=== PATIENT | male | born 2000 | race Hispanic/Latino ===

== ENCOUNTER 2024-05-29 19:29 | Outpatient (REF) | payer SELFPAY ==
[2024-05-29 19:32] VITALS: BP 168/99; PULSE 122; RESP 18; TEMP 36.7; O2SAT 98; BMI 30.9
[2024-05-29 19:36] VITALS: BP 139/86; PULSE 122; RESP 18; TEMP 36.7; O2SAT 98
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
--- NOTE | 2024-05-29 19:53 | EKG12_ITS ---
Test Reason : DYSRHYTHMIA Blood Pressure : / mmHG Vent. Rate : 104 BPM Atrial Rate : 104 BPM P-R Int : 174 ms QRS Dur : 080 ms QT Int : 314 ms P-R-T Axes : 021 045 028 degrees QTc Int : 412 ms Sinus tachycardia Otherwise normal ECG Confirmed by Kimo Landaverde ([id number]), newspaper or periodical editor ZEFERINO ROBERTS ([id number]) on 06/01/2024 2:10:27 PM Referred By: Confirmed By:Kimo Landaverde
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
[2024-05-29] MEDS: 0.9% Normal Saline (1000mL) 1,000 ML 999 ML IV (20:04)
[2024-05-29 20:07] LABS: Absolute Lymphocyte Count 2.24 X10^3/uL (0.83-4.51); Absolute Neutrophil Count 5.2 X10^3/uL (2.0-7.7); Basophil# 0.07 X10^3/uL; Basophil% 0.8 % (0-1); Eosinophil# 0.15 X10^3/uL; Eosinophils% 1.8 % (0-5); Hematocrit 43.9 % (40-54); Hemoglobin 15.1 g/dL (13.0-16.5); Lymphocyte # 2.24 X10^3/ul (0.83-4.51); Lymphocyte % 26.8 % (19-41); Mean Corp Hgb Conc 34.4 g/dL (32-36); Mean Corpuscular Hgb 30.6 pg (27.0-32.0); Mean Platelet Vol. 10.4 fl (6.2-12.0); Monocyte# 0.59 X10^3/uL; NRBC Flagged by Analyzer 0 % (0-5); Neutrophil # 5.21 X10^3/uL (2.7-7.7); Neutrophil % 62.3 % (47-70); Platelet Count 228 K/mm3 (150-450); RBC Distribution Width CV 11.9 % (11.6-14.6); RBC Distribution Width SD 38.5 fl (35.1-43.9); Red Blood Count 4.93 M/mm3 (4.6-6.2); White Blood Count 8.4 K/mm3 (4.4-11.0)
[2024-05-29] MEDS: Diphth,Pertuss(Acell),Tet Vac 0.5 ML Vial IM (20:11)
[2024-05-29 20:28] LABS: AST(SGOT) 22 U/L (15-37); Alanine Aminotransfer ALT/SGPT 34 U/L (16-61); Alkaline Phosphatase 103 U/L (45-117); Anion Gap 12 (5-15); BUN 17 mg/dL (7-18); BUN/Creat Ratio 14.9 RATIO (10-20); Bilirubin, Direct 0.12 mg/dL (0.00-0.30); Chloride 109 mmol/L (98-107); Creatinine, Serum 1.14 mg/dL (0.70-1.30); EST Glomerular Filtration Rate 84 mL/min (>60); Est Glom Filt Rate - Afr Amer 101 mL/min (>60); Globulin 3.9 g/dL (2.2-4.2); Glucose 98 mg/dL (74-106); Lipase 21 U/L (13-75); Potassium 3.5 mmol/L (3.5-5.1); Protein, Total 7.9 g/dL (6.4-8.2); Sodium Level 140 mmol/L (136-145)
--- NOTE | 2024-05-29 20:40 | RAD_ITS ---
EXAM: XR LEFT KNEE, 3 VIEWS CLINICAL INDICATION: pain TECHNIQUE: Three views of the left knee. COMPARISON: No relevant prior studies available. FINDINGS: BONES/JOINTS: Unremarkable. No acute fracture. No subluxation. Normal alignment. Preservation of the joint space. No sclerotic or destructive changes observed. SOFT TISSUES: Unremarkable. No soft tissue swelling or gas. No radiopaque foreign body. RAD/Knee 3 Views IMPRESSION: Negative left knee x-rays. Electronically Signed: Jamie Pleitez MD at 21:34 EDT ,
--- NOTE | 2024-05-29 20:40 | RAD_ITS ---
EXAM: XR LEFT TIBIA AND FIBULA, 2 VIEWS CLINICAL INDICATION: pain TECHNIQUE: Frontal and lateral views of the left tibia and fibula. COMPARISON: No relevant prior studies available. FINDINGS: BONES/JOINTS: Unremarkable. No acute fracture. No subluxation. Normal alignment. Preservation of the joint space. No sclerotic or destructive changes observed. SOFT TISSUES: Unremarkable. No soft tissue swelling or gas. No radiopaque foreign body. RAD/Tibia & Fibula 2 Views IMPRESSION: Negative left tibia and fibula x-rays. Electronically Signed: Jamie Pleitez MD at 21:48 EDT ,
--- NOTE | 2024-05-29 20:40 | RAD_ITS ---
EXAM: XR LEFT FEMUR, 2 VIEWS CLINICAL INDICATION: pain TECHNIQUE: Frontal and lateral views of the left femur. COMPARISON: No relevant prior studies available. FINDINGS: BONES/JOINTS: Unremarkable. No acute fracture. No subluxation. Normal alignment. Preservation of the joint space. No sclerotic or destructive changes observed. SOFT TISSUES: Unremarkable. No soft tissue swelling or gas. No radiopaque foreign body. RAD/Femur Min 2 Views IMPRESSION: Negative left femur x-rays. Electronically Signed: Jamie Pleitez MD at 21:36 EDT ,
[2024-05-29 21:03] VITALS: BP 126/72; PULSE 85; RESP 16; O2SAT 98
[2024-05-29 21:16] LABS: Bacteria 0 SEEN /hpf (None Seen); Mucous, Urine 0 SEEN /hpf (<or=2+); Red Blood Cells-Urine 0 SEEN /hpf (0-5); Squamous Epithelial Cells - UA 0 SEEN /hpf (0-5); White Blood Cells 0 SEEN /hpf (0-5)
[2024-05-29 21:36] LABS: Color, Urine Yellow (Yellow); Glucose, Dipstick Normal (Normal); Ketone-Dipstick Negative (Negative); Leukocyte Esterase-Dipstick Negative /ul (Negative); Nitrite-Dipstick Negative (Negative); Occult Blood-Urine Negative /ul (Negative); Protein-Dipstick 100 mg/dl (Negative); Specific Gravity, Urine 1.015 (1.002-1.030); Urine Bilirubin Dipstick Negative (Negative); Urine Clarity Clear (Clear); Urine Urobilinogen Normal (Normal)
[2024-05-29 22:00] VITALS: BP 146/81; PULSE 102; RESP 16; O2SAT 98
[2024-05-29 22:19] VITALS: BP 146/81; PULSE 102; RESP 16; TEMP 36.7; O2SAT 99
[2024-05-29] MEDS: Ketorolac 30 MG/ML Syringe IV (22:23)
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
== END 2024-05-29 22:44 | disposition home or self-care (01) ==
LOC: EDREF 19:29
PROVIDERS: Visit Provider Emergency Medicine
DX: S70.312A Abrasion, left thigh, initial encounter (principal); V48.5XXA Car driver injured in noncollision transport accident in traffic accident, initial encounter; M79.605 Pain in left leg; F17.290 Nicotine dependence, other tobacco product, uncomplicated; R51.9 Headache, unspecified
CPT/HCPCS: 70450; 71260; 72125; 73552; 73562; 73590; 74177; 80048; 80076; 81001; 83690; 85025; 90715; 93005; Q9967; A4216